=== PATIENT | male | born 1970 | race Caucasian/White ===

== ENCOUNTER 2019-09-16 10:16 | Day surgery (SDC) | payer OTHER ==
[~2019-09-16] VITALS: Ht 182.9 cm; Wt 131.8 kg
[2019-09-16] MEDS ORDERED: TRIA1TAB5 PO (11:14)
[2019-09-16] MEDS ORDERED: TEST200K IM (11:14)
[2019-09-16 11:15] VITALS: BP 139/88
[2019-09-16 11:42] LABS: BASOPHILS # (AUTO) 0.06 x10^3/uL (0-0.1); BASOPHILS % (AUTO) 1 % (0-1); EOSINOPHILS % (AUTO) 1 % (1-7); LYMPHOCYTES # (AUTO) 2.08 x10^3/uL (1-3.4); LYMPHOCYTES % (AUTO) 27 % (22-44); MD NO; MEAN CORPUSCULAR HEMOGLOBIN 29.9 pg (27.5-34.5); MEAN CORPUSCULAR VOLUME 90.8 fL (81-97); MEAN PLATELET VOLUME 8.1 fL (7.4-10.4); MONOCYTES # (AUTO) 0.46 x10^3/uL (0.2-0.8); MONOCYTES % (AUTO) 6 % (2-9); NEUTROPHILS # (AUTO) 4.96 x10^3/uL (1.8-6.8); NEUTROPHILS % (AUTO) 65 % (42-75); PLATELET COUNT 282 x10^3/uL (130-400); RED BLOOD COUNT 5.91 x10^6/uL (4.38-5.82); RED CELL DISTRIBUTION WIDTH 14.1 % (9.4-14.8)
[2019-09-16 11:55] LABS: ANION GAP 3 mmol/L (5-15); CHLORIDE 107 mmol/L (98-107)
[2019-09-16 11:57] LABS: CREATININE 1.07 mg/dL (0.7-1.3)
[2019-09-16] MEDS ORDERED: TICAGRELOR 90 MG TABLET ONE (13:04)
[2019-09-16] MEDS ORDERED: MIDAZOLAM 1 MG/ML, 5ML ONE (13:04)
[2019-09-16] MEDS ORDERED: VERAPAMIL 2.5 MG/ML, 2ML ONE (13:04)
[2019-09-16] MEDS ORDERED: FENTANYL PF 100 MCG/2ML ONE (13:04)
[2019-09-16] MEDS ORDERED: LIDOCAINE 2%, 20ML ONE (13:05)
[2019-09-16] MEDS ORDERED: BIVALIRUDIN 250 MG ONE (13:05)
[2019-09-16] MEDS ORDERED: SODIUM CHLORIDE 0.9% 1,000 ML IV SCH (13:47)
== END 2019-09-16 15:23 | disposition home or self-care (01) ==
LOC: CACL 10:16
PROVIDERS: ATTEND Internal Medicine Cardiovascular Disease
DX: R07.9 Chest pain, unspecified (principal); I25.10 Atherosclerotic heart disease of native coronary artery without angina pectoris; I10 Essential (primary) hypertension; G47.30 Sleep apnea, unspecified; Z87.891 Personal history of nicotine dependence; Z88.6 Allergy status to analgesic agent
CPT/HCPCS: 36415; 71046; 80048; 85025; 93458; 99156; C1769; C1894; J2250; J3010; Q9967; J0583